=== PATIENT | female | born 1995 | race Caucasian/White ===

== ENCOUNTER 2017-04-02 09:08 | Inpatient (IN) | payer BC ==
[2017-04-02] MEDS ORDERED: OXYTOCIN 30 UNITS/LR 500 ML IV ×2 (09:30→21:00)
[2017-04-02] MEDS ORDERED: BUTORPHANOL 2 MG INJ IV ×2 (09:30)
[2017-04-02] MEDS ORDERED: LIDOCAINE 1% (MPF) 30 ML INJ INJ (09:30)
[2017-04-02] MEDS ORDERED: MISOPROSTOL 200 MCG TAB PR ×2 (09:30→21:00)
[2017-04-02] MEDS ORDERED: CARBOPROST 250 MCG INJ IM ×2 (09:30→21:00)
[2017-04-02 10:10] LABS: ADD MAN DIFF? NO
[2017-04-02 10:14] LABS: WHITE BLOOD COUNT 9.8 10^3/ul (4.8-10.8)
[2017-04-02 10:14] LABS: BASOPHILS % 0.2 % (0.0-2.0); EOSINOPHILS # 0.1 10^3/ul (0.0-0.5); EOSINOPHILS % 0.7 % (0.0-7.0); HEMATOCRIT 35.1 % (37.0-47.0); HEMOGLOBIN 11.5 g/dl (12.0-16.0); LYMPHOCYTES # 1.8 10^3/ul (0.8-2.9); LYMPHOCYTES % 18.2 % (15.0-51.0); MEAN CORPUSCULAR HEMOGLOBIN 30.2 pg (29.0-33.0); MEAN CORPUSCULAR HGB CONC 32.8 g/dl (32.0-37.0); MEAN CORPUSCULAR VOLUME 92.1 fl (82.0-101.0); MEAN PLATELET VOLUME 11.2 fl (7.4-10.4); MONOCYTE # 0.5 10^3/ul (0.3-0.9); MONOCYTES % 4.8 % (0.0-11.0); NEUTROPHIL # 7.4 10^3/ul (1.6-7.5); NEUTROPHILS % 75.5 % (39.0-77.0); PLATELET COUNT 173 10^3/UL (140-415); RED BLOOD COUNT 3.81 10^6/ul (4.20-5.40); RED CELL DISTRIBUTION WIDTH 14.5 % (11.5-14.5)
[2017-04-02 10:33] LABS: INR 0.99; PROTIME 13.2 Sec (11.9-14.9)
[2017-04-02 10:34] LABS: PARTIAL THROMBOPLASTIN TIME 31.8 Sec (25.0-35.0)
[2017-04-02] MEDS: LACTATED RINGER'S 1,000 ML IV ×2 (10:34→13:18)
[2017-04-02] MEDS ORDERED: FENTAnyl 2MCG/ML-ROPIV 0.2% 100 ML (13:32)
[2017-04-02] MEDS ORDERED: HYDROmorphONE 0.5 MG/0.5 ML SYG IV (15:00)
[2017-04-02] MEDS ORDERED: ONDANSETRON 4 MG INJ IV (15:00)
[2017-04-02] MEDS ORDERED: NALOXONE (0.4 MG/ML) INJ IV (15:00)
[2017-04-02] MEDS ORDERED: DIPHENHYDRAMINE 50 MG INJ IV (15:00)
[2017-04-02] MEDS ORDERED: FENTAnyl 2MCG/ML-ROPIV 0.2% 100 ML BAG EPI (15:00)
[2017-04-02 15:03] LABS: RAPID PLASMA REAGIN NONREACTIVE (NR)
[2017-04-02] MEDS: METHYLERGONOVINE 0.2 MG INJ IM (18:11)
[2017-04-02] MEDS: OXYTOCIN 30 UNITS/LR 500 ML IV ×2 (18:11→18:35)
[2017-04-02] MEDS: LACTATED RINGER'S 1,000 ML IV* (20:46)
[2017-04-02] MEDS ORDERED: LANOLIN 7 GM TUBE TOP (21:00)
[2017-04-02] MEDS ORDERED: METHYLERGONOVINE 0.2 MG INJ IM (21:00)
[2017-04-02] MEDS ORDERED: ACETAMINOPHEN 325 MG TAB PO (21:00)
[2017-04-02] MEDS ORDERED: DIBUCAINE 1% 30 GM OINT PR (21:00)
[2017-04-02] MEDS: WITCH HAZEL/GLYCERIN PAD PR (22:05)
[2017-04-02] MEDS: SENNA/DOCUSATE NA (8.6MG/50MG) TAB PO (22:05)
[2017-04-02] MEDS: BENZOCAINE 20% 56 ML SPRAY TOP (22:05)
[2017-04-02] MEDS: HYDROCODONE/APAP (5/325) TAB PO (22:06)
[2017-04-02] MEDS: IBUPROFEN 600 MG TAB PO (23:33)
[2017-04-03] MEDS: LACTATED RINGER'S 1,000 ML IV* (04:46)
[2017-04-03] MEDS: IBUPROFEN 600 MG TAB PO ×4 (05:32→23:42)
[2017-04-03] MEDS: SENNA/DOCUSATE NA (8.6MG/50MG) TAB PO ×2 (09:19→21:16)
[2017-04-03] MEDS: HYDROCODONE/APAP (5/325) TAB PO (09:21)
[2017-04-03 10:19] LABS: ADD MAN DIFF? NO
[2017-04-03 10:25] LABS: WHITE BLOOD COUNT 11.7 10^3/ul (4.8-10.8)
[2017-04-03 10:25] LABS: BASOPHILS % 0.1 % (0.0-2.0); EOSINOPHILS # 0.1 10^3/ul (0.0-0.5); EOSINOPHILS % 0.4 % (0.0-7.0); HEMATOCRIT 27.6 % (37.0-47.0); HEMOGLOBIN 9.1 g/dl (12.0-16.0); LYMPHOCYTES # 1.6 10^3/ul (0.8-2.9); LYMPHOCYTES % 13.8 % (15.0-51.0); MEAN CORPUSCULAR HEMOGLOBIN 30.6 pg (29.0-33.0); MEAN CORPUSCULAR VOLUME 92.9 fl (82.0-101.0); MEAN PLATELET VOLUME 11.4 fl (7.4-10.4); MONOCYTE # 0.5 10^3/ul (0.3-0.9); MONOCYTES % 4.3 % (0.0-11.0); NEUTROPHIL # 9.4 10^3/ul (1.6-7.5); NEUTROPHILS % 80.9 % (39.0-77.0); PLATELET COUNT 161 10^3/UL (140-415); RED BLOOD COUNT 2.97 10^6/ul (4.20-5.40); RED CELL DISTRIBUTION WIDTH 14.7 % (11.5-14.5)
[2017-04-04] MEDS: IBUPROFEN 600 MG TAB PO ×2 (05:44→12:56)
[2017-04-04] MEDS: SENNA/DOCUSATE NA (8.6MG/50MG) TAB PO (09:22)
[2017-04-04] MEDS: DIPHTH/TET/ACEL PERTUSS (ADULT) 0.5 ML VIAL IM* (09:23)
== END 2017-04-04 16:17 | disposition home or self-care (01) | DRG 775 ==
LOC: OBT 09:08 → L-D 09:08 → OBT 09:36 → L-D 09:32 → PP1 20:50
PROVIDERS: Obstetrics & Gynecology
PROC: 10E0XZZ Delivery of Products of Conception, External Approach (ICD-10-PCS; principal; 2017-04-02)
DX: O70.0 First degree perineal laceration during delivery (principal); Z37.0 Single live birth; Z3A.38 38 weeks gestation of pregnancy
CPT/HCPCS: 62319; 85025; 85610; 85730; 86592; 86900; 86901; 90715